=== PATIENT | male | born 1990 | race Caucasian/White ===

== ENCOUNTER 2019-01-24 16:44 | Observation (INO) ==
[2019-01-24] MEDS ORDERED: 0.9 % Sodium Chloride 1,000 ML IVC SCH (19:30)
[2019-01-24] MEDS ORDERED: *HR* HYDROmorphone (PF) 1 MG/ML SYRINGE IVP PRN (19:55)
[2019-01-24] MEDS ORDERED: *HR* OxyCODONE Immed Rel 5 MG TABLET PO PRN (19:55)
[2019-01-24] MEDS ORDERED: Ondansetron 4 MG/2 ML VIAL IVP ONE (19:55)
[2019-01-24] MEDS ORDERED: Bupivacaine/EPI 1:200k 0.5%PF 30 ML VIAL ONE (20:07)
[2019-01-24] MEDS ORDERED: *HR* FentaNYL (PF) 100 MCG/2 ML VIAL ONE (20:08)
[2019-01-24] MEDS ORDERED: *HR* Midazolam HCl 2 MG/2 ML VIAL ONE (20:09)
[2019-01-24] MEDS ORDERED: *HR* Propofol 200 MG/20 ML VIAL IVP ONE (20:09)
[2019-01-24] MEDS ORDERED: Ondansetron 4 MG/2 ML VIAL ONE (20:11)
[2019-01-24] MEDS ORDERED: Lidocaine -MPF 2% 2 ML VIAL ONE (20:11)
[2019-01-24] MEDS ORDERED: Lidocaine -MPF 4% 5 ML AMPUL ONE (20:11)
[2019-01-24] MEDS ORDERED: *HR* Rocuronium Bromide 50 MG/5 ML VIAL ONE (20:11)
[2019-01-24] MEDS ORDERED: Acetaminophen IV 1,000 MG/100 ML INFUS..BTL ONE (20:22)
[2019-01-24] MEDS ORDERED: *HR* HYDROMORPHONE 2 MG/ML VIAL ONE (20:53)
[2019-01-24] MEDS ORDERED: Neostigmine Methylsulfate 3 MG/3 ML SYRINGE ONE (21:20)
[2019-01-24] MEDS ORDERED: Ketorolac 30 MG/ML VIAL IVP ONE (22:08)
[2019-01-25] MEDS ORDERED: Ketorolac 15 MG/ML VIAL IVP SCH ×2 (01:37→09:00)
[2019-01-25] MEDS: 0.9 % Sodium Chloride 1,000 ML IVC SCH ×2 (03:28→12:47)
[2019-01-25] MEDS: Gabapentin 300 MG CAPSULE PO SCH ×3 (03:29→14:32)
[2019-01-25] MEDS: Acetaminophen IV 1,000 MG/100 ML INFUS..BTL IVPB SCH ×3 (03:29→12:47)
[2019-01-25] MEDS: Piperacillin/Tazobactam 3.375 GM in 0.9 % Sodium Chloride Mini Bag 100 ML IVPB SCH ×2 (03:30→12:47)
[2019-01-25 06:54] VITALS: BP 106/57
== END 2019-01-25 15:45 | disposition home or self-care (01) ==
LOC: 3BNU
PROVIDERS: ADMIT Surgery; ATTEND Surgery